=== PATIENT | male | born 1985 | race Caucasian/White ===

== ENCOUNTER → 2020-07-09 06:00 | Outpatient (CLI) | payer OTHER ==
[~2020-07-09 06:00] MED LIST: CATAFLAM; COZAAR25 MG PO; FENOFIB PO; GLIPIZIDE ER2.5 MG; JANUMET 50-1,01 EACH PO; LOSARTAN POTASS25 MG; METFORMIN HCL500 M3; NORFLEX
== END | disposition home or self-care (01) ==
LOC: LAB 06:00 → ADM 08:15 → EDSTATUS 07-16 08:15 → CIR.AMB 07-16 08:15 → LAB 07-17 06:00
PROVIDERS: ATTEND Urology
DX: U07.1 COVID-19 (principal); N47.1 Phimosis

== ENCOUNTER 2020-08-20 05:15 | Day surgery (SDC) | payer OTHER | END 2020-08-20 12:40 | disposition home or self-care (01) | LOC: CIR.AMB 05:15 | PROVIDERS: ATTEND Urology | DX: N47.1 Phimosis (principal); Z20.828 Contact with and (suspected) exposure to other viral communicable diseases ==